=== PATIENT | male | born 1975 | race Caucasian/White ===

== ENCOUNTER 2018-07-23 10:06 | Emergency (ER) | payer OTHER, BC ==
[~2018-07-23] VITALS: Ht 157.5 cm; Wt 76.2 kg
[2018-07-23 10:20] VITALS: BP 116/73
== END 2018-07-23 11:00 | disposition home or self-care (01) ==
LOC: ER 10:09
DX: S90.111A Contusion of right great toe without damage to nail, initial encounter (principal); M54.9 Dorsalgia, unspecified; W01.0XXA Fall on same level from slipping, tripping and stumbling without subsequent striking against object, initial encounter; Y93.89 Activity, other specified; Y92.89 Other specified places as the place of occurrence of the external cause; Y99.8 Other external cause status
CPT/HCPCS: 73630; 99284; A4606; Z7610